=== PATIENT | female | born 1995 | race Caucasian/White ===

== ENCOUNTER 2019-01-09 20:37 | Emergency (ER) | payer OTHER ==
[~2019-01-09] VITALS: Ht 162.6 cm; Wt 95.5 kg
[~2019-01-09 20:37] MED LIST: SPRINTEC 35 MCG1 TAB PO; ZITHROMAX 250M250 MG PO
[2019-01-09 21:29] LABS: BASO % 0.5 % (0.0-2.0); EOS # 0.1 (0.0-0.7); EOS % 1.5 % (0-4.0); GRAN # 4.9 (1.4-6.5); GRAN % 61.3 % (42.2-75.2); HEMATOCRIT 37.9 % (37.0-47.0); HEMOGLOBIN 12.3 g/dl (12.5-16.0); LYMPH # 2.4 (1.2-3.4); LYMPH % 30.3 % (20.0-51.0); MEAN CELL VOLUME 89 fl (80.0-100.0); MEAN CORPUSCULAR HEMOGLOBIN 29 pg (27.0-31.0); MEAN CORPUSCULAR HGB CONC 33 g/dl (33.0-37.0); MEAN PLATELET VOLUME 10.1 fl (7.4-10.4); MONO # 0.5 (0.1-0.6); MONO % 6.2 % (1.7-9.3); PLATELET COUNT 312 K/mm3 (130-400); RED BLOOD COUNT 4.27 M/mm3 (4.10-5.30); REDCELL DISTRIBUTION WIDTH-CV 14.4 % (11.5-14.5)
[2019-01-09 21:41] LABS: ALANINE AMINOTRANSFERASE < 6 U/L (9-52); ALBUMIN 4.1 gm/dL (3.5-5.0); ALKALINE PHOSPHATASE 55 U/L (50-136); ANION GAP 8 mmol/L (7-16); AST,SGOT 16 U/L (15-37); BILIRUBIN,TOTAL 0.1 mg/dL (0.0-1.0); BLOOD UREA NITROGEN 14 mg/dL (7-17); CALCIUM 9.6 mg/dL (8.4-10.2); CARBON DIOXIDE 24 mmol/L (22-30); CHLORIDE 108 mmol/L (98-107); CREATININE, serum 0.93 (0.52-1.25); GLUCOSE 100 mg/dL (74-106); POTASSIUM 3.7 mmol/L (3.4-5.0); SODIUM 140 mmol/L (137-145); TOTAL PROTEIN 7.3 gm/dL (6.4-8.2)
[2019-01-09 21:51] LABS: ACETAMINOPHEN < 10 ug/mL (10-30); ALCOHOL(ethanol),MEDICAL < 10 mg/dL; SALICYLATE < 1.0 mg/dL
[2019-01-09 21:55] LABS: COLLECTION METHOD CLEAN CATCH
[2019-01-09 22:01] LABS: MUCOUS Present /lpf; PH 5 (5-8); SQUAMOUS EPITHELIAL 0-2 /hpf; URINE APPEARANCE Hazy; URINE BACTERIA Rare /hpf; URINE BILIRUBIN Negative (NEGATIVE); URINE BLOOD Negative (NEGATIVE); URINE COLOR Yellow; URINE GLUCOSE Negative (NEGATIVE); URINE KETONE Negative (NEGATIVE); URINE LEUKOCYTE ESTERASE Negative (NEGATIVE); URINE NITRATE Negative (NEGATIVE); URINE PROTEIN(semi-quant) Negative (NEGATIVE); URINE RBC 0-2 /hpf; URINE UROBILINOGEN Negative (NEGATIVE)
[2019-01-09 22:18] LABS: TRICYCLIC ANTIDEPRESS URINE NEGATIVE
[2019-01-10] MEDS ORDERED: EFFEXOR100 MG (00:12)
[2019-01-10] MEDS ORDERED: TOPAMAX50 MG PO (00:13)
[2019-01-10] MEDS ORDERED: EFFEXOR100 MG PO (00:13)
[2019-01-10] MEDS ORDERED: WELLBUTRIN XL300 M1 PO (00:13)
[2019-01-10 06:16] VITALS: BP 116/72; PULSE 98; TEMP 98.1
== END 2019-01-10 06:23 ==
LOC: COL.ER 20:37
PROVIDERS: Emergency Medicine
DX: R45.851 Suicidal ideations (principal); F32.9 Major depressive disorder, single episode, unspecified

== ENCOUNTER 2021-05-22 07:41 | Inpatient (IN) | payer BC ==
[~2021-05-22] VITALS: Ht 162.7 cm; Wt 110.9 kg
[~2021-05-22 07:41] MED LIST changes: +BUSPAR5 MG; +EFFEXOR100 MG; +EFFEXOR100 MG PO; +TOPAMAX50 MG PO; +VITAMIN D31000 I1; +WELLBUTRIN XL300 M1 PO
[2021-05-25] VITALS (17 sets, daily range): BP systolic 111–144; BP diastolic 59–99; PULSE 55–94; TEMP 97.4–98.2
--- NOTE | 2021-05-25 05:45 | NUR ---
Patient ambulatory to room 213 with for scheduled . Plan of care reviewed. EFMs explained and applied. VS obtained. Consents signed.
[2021-05-25 06:26] LABS: BASO % 0.2 % (0.0-2.0); EOS # 0.2 K/mm3 (0.0-0.7); EOS % 1.3 % (0.0-4.0); GRAN % 71.2 % (42.2-75.2); LYMPH # 2.3 K/mm3 (1.2-3.4); LYMPH % 20.4 % (20.0-51.0); MEAN CELL VOLUME 89 fl (80.0-100.0); MEAN CORPUSCULAR HGB CONC 32 g/dl (33.0-37.0); MEAN PLATELET VOLUME 12.6 fl (7.4-10.4); MONO # 0.7 K/mm3 (0.1-0.6); MONO % 5.9 % (1.7-9.3); PLATELET COUNT 158 K/mm3 (130-400); RED BLOOD COUNT 3.27 M/mm3 (4.10-5.30); REDCELL DISTRIBUTION WIDTH-CV 15.4 % (11.5-14.5)
[2021-05-25] MEDS ORDERED: PRENATAL TABLET PO (06:31)
[2021-05-25 06:32] LABS: HEMATOCRIT 29.1 % (37.0-47.0); HEMOGLOBIN 9.4 g/dl (12.5-16.0); MEAN CORPUSCULAR HEMOGLOBIN 29 pg (27-31)
--- NOTE | 2021-05-25 18:30 | NUR ---
Report recieved. Resting in bed. Request be taken to the nsy. POC reviewed and whiteboard updated.
[2021-05-26 00:15] VITALS: BP 135/88; PULSE 83; TEMP 97.4
[2021-05-26 05:10] VITALS: BP 133/86; PULSE 84; TEMP 97.6
--- NOTE | 2021-05-26 06:30 | NUR ---
REPORT RECEIVED FROM OFF GOING RN, ALEXIS Ramos CARE TAKEN OVER BY THIS RN.
[2021-05-26 06:52] LABS: HEMATOCRIT 28.6 % (37.0-47.0); HEMOGLOBIN 9.4 g/dl (12.5-16.0)
[2021-05-26 07:16] VITALS: BP 145/92; PULSE 90; TEMP 97.6
[2021-05-26 08:06] VITALS: BP 153/89; PULSE 87
[2021-05-26] MEDS ORDERED: IBU600 MG PO (10:23)
[2021-05-26] MEDS ORDERED: PERCOCET 325 MG1 TA2 PO (10:23)
--- NOTE | 2021-05-26 13:13 | NUR ---
Initial visit; Parents thanked Correction Warden for offering congratulations and God's blessings for the of their son. Correction Warden thanked family for choosing [facility].
[2021-05-26 16:19] VITALS: BP 144/86; PULSE 86; TEMP 98.2
[2021-05-26 19:30] VITALS: BP 132/78; PULSE 82; TEMP 97.4
--- NOTE | 2021-05-27 06:31 | NUR ---
REPORT RECEIVED FROM OFF GOING RN. CARE TAKEN OVER BY THIS RN.
[2021-05-27 07:30] VITALS: BP 141/84; PULSE 91; TEMP 97.8
== END 2021-05-27 17:25 | disposition home or self-care (01) | DRG 787 ==
LOC: OB 05-25 05:34 → LDR 05-25 07:40 → OB 05-27 17:25
PROVIDERS: ADMIT Obstetrics & Gynecology
PROC: 10D00Z1 Extraction of Products of Conception, Low, Open Approach (ICD-10-PCS; principal; 2021-05-25)
DX: O35.8XX0 Maternal care for other (suspected) fetal abnormality and damage, not applicable or unspecified (principal); O41.03X0 Oligohydramnios, third trimester, not applicable or unspecified; O99.344 Other mental disorders complicating childbirth; F32.A Depression, unspecified; O69.81X0 Labor and delivery complicated by cord around neck, without compression, not applicable or unspecified; O13.4 Gestational [pregnancy-induced] hypertension without significant proteinuria, complicating childbirth; O99.02 Anemia complicating childbirth; D64.9 Anemia, unspecified; Z37.0 Single live birth; Z3A.39 39 weeks gestation of pregnancy
CPT/HCPCS: J0690; J1885; J2405; J2590; J7120